=== PATIENT | female | born 1990 | race Caucasian/White ===

== ENCOUNTER 2020-06-14 14:43 | Outpatient (CLI) | payer BC, SELFPAY ==
[2020-06-14 17:07] LABS: Basophils Percent Auto 0.4 % (0.2-1.2); Eosinophils Absolute Auto 0.1 K/mm3 (0-0.3); Hematocrit 40.3 % (37.0-47.0); Hemoglobin 13.4 g/dL (12.0-15.0); Immature Granulocyte Absolute 0.02 K/mm3 (0.00-0.031); Immature Granulocyte Percent A 0.3 % (0-0.5); Lymphocytes Absolute Auto 1.45 K/mm3 (0.9-3.2); Lymphocytes Percent Auto 20.5 % (18.3-44.2); Mean Corpuscular HGB Conc 33.3 g/dl (32-36); Mean Corpuscular Hemoglobin 28.9 pg (26-34); Mean Corpuscular Volume 86.9 fl (80-100); Monocytes Absolute Auto 0.4 K/mm3 (0.1-0.6); Monocytes Percent Auto 5.8 % (2.6-8.5); Neutrophils Absolute Auto 5.1 K/mm3 (1.3-6.7); Platelet Count Result 263 k/mm3 (150-375); Red Blood Count 4.64 M/mm3 (4.2-5.4); Red Cell Distribution Width 14.2 % (11.5-14.5); White Blood Count 7.1 K/mm3 (4.5-10.0)
[2020-06-14 17:09] LABS: Add Urine Microscopic? NO; Appearance Urine Clear (Clear); Bilirubin Urine Negative (Negative); Blood Urine Negative (Negative); Color Urine Colorless (Yellow); Glucose Urine UA Negative (Negative); Ketones Urine Negative (Negative); Leukocyte Esterase Ur Negative LEU/UL (Negative); Nitrate Urine Negative (Negative); Protein Urine Negative (Negative); Urobilinogen Urine Negative mg/dL (<2.0)
[2020-06-14 17:16] LABS: Alanine Aminotransferase 13 U/L (4-35); Albumin Level 4.5 g/dL (3.5-5.1); Alkaline Phosphatase 67 U/L (38-126); Anion Gap 9 mmol/L (8-16); Aspartate Amino Transferase 20 U/L (14-36); Bilirubin,Total 0.5 mg/dL (0.2-1.3); Blood Urea Nitrogen 7 mg/dL (7-17); Calcium 9.7 mg/dL (8.4-10.2); Carbon Dioxide 25 mmol/L (22-30); Chloride 103 mmol/L (98-107); Cholesterol 173 mg/dL (0-200); Estimated Glomerular Filt Rate > 60; Glucose 93 mg/dL (65-105); HDL Direct 40 mg/dL; Sodium 137 mmol/L (137-145); Triglycerides 153 mg/dL (<150)
[2020-06-14 17:27] LABS: LDL Cholesterol Direct 99 mg/dL
[2020-06-14 17:32] LABS: Vitamin D 25 Hydroxy 44.6 ng/mL
[2020-06-14 17:34] LABS: Specific Grav Ur 1.004 (1.001-1.035)
[2020-06-14 18:20] LABS: Folic Acid 10.6 ng/mL (2.76->20)
[2020-06-17 06:15] LABS: C-Peptide 1.04 ng/mL (0.80-3.85)
[2020-06-20 14:32] LABS: Testosterone Free 3.3 pg/mL (0.1-6.4); Testosterone Total 35 ng/dL (2-45)
== END 2020-06-14 14:44 | disposition home or self-care (01) ==
LOC: ANHBWCLAB 14:44
PROVIDERS: PCP Family Medicine; Visit Provider Family Medicine
DX: Z51.81 Encounter for therapeutic drug level monitoring (principal); Z79.899 Other long term (current) drug therapy; Z82.62 Family history of osteoporosis; F90.9 Attention-deficit hyperactivity disorder, unspecified type; F17.200 Nicotine dependence, unspecified, uncomplicated; Z98.51 Tubal ligation status; Z99.89 Dependence on other enabling machines and devices
CPT/HCPCS: 36415; 80053; 80061; 81003; 82306; 82607; 82746; 84402; 84403; 84443; 84681; 85025

== ENCOUNTER 2021-12-20 07:55 | Outpatient (CLI) | payer BC, SELFPAY ==
[2021-12-20 18:00] LABS: Hematocrit 41.4 % (37.0-47.0); Hemoglobin 12.9 g/dL (12.0-15.0); Mean Corpuscular HGB Conc 31.2 g/dl (32-36); Mean Corpuscular Hemoglobin 28.5 pg (26-34); Mean Corpuscular Volume 91.4 fl (80-100); Mean Platelet Volume 10.3 fl (7.4-10.4); Platelet Count Result 254 k/mm3 (150-375); Red Blood Count 4.53 M/mm3 (4.2-5.4); Red Cell Distribution Width 14.8 % (11.5-14.5); White Blood Count 4.1 K/mm3 (4.5-10.0)
[2021-12-20 18:13] LABS: Potassium 4.6 mmol/L (3.4-5.0)
[2021-12-20 18:16] LABS: Alanine Aminotransferase 13 U/L (6-35); Alkaline Phosphatase 59 U/L (38-126); Anion Gap 6 mmol/L (8-16); Aspartate Amino Transferase 22 U/L (14-36); Bilirubin,Total 0.5 mg/dL (0.2-1.3); Blood Urea Nitrogen 12 mg/dL (7-17); Calcium 9.6 mg/dL (8.4-10.2); Carbon Dioxide 26 mmol/L (22-30); Chloride 105 mmol/L (98-107); Cholesterol 183 mg/dL (0-200); Estimated Glomerular Filt Rate > 60; Glucose 85 mg/dL (65-110); HDL Direct 62 mg/dL; Sodium 137 mmol/L (137-145); Triglycerides 50 mg/dL (<150)
[2021-12-20 18:24] LABS: LDL Cholesterol Direct 94 mg/dL
== END 2021-12-20 07:56 | disposition home or self-care (01) ==
PROVIDERS: PCP Family Medicine; Visit Provider Family Medicine
DX: Z00.00 Encounter for general adult medical examination without abnormal findings (principal); F33.9 Major depressive disorder, recurrent, unspecified
CPT/HCPCS: 36415; 80053; 80061; 84443; 85027